=== PATIENT | male | born 1980 | race Caucasian/White ===

== ENCOUNTER 2023-06-17 10:23 | Emergency (ER) | payer OTHER, SELFPAY ==
[2023-06-17 10:28] VITALS: BP 168/94; PULSE 80; RESP 18; TEMP 36.8; O2SAT 99; BMI 37.5
--- NOTE | 2023-06-17 10:40 | CRLHL7_ITS ---
For Patients: As a result of the Century Cures Act, medical imaging exams and procedure reports are released immediately into your electronic medical record. You may view this report before your referring provider. If you have questions, please contact your health care provider. CLINICAL HISTORY: Left scrotal lump TECHNIQUE: Benedict scale imaging was performed of the scrotum. In addition color Doppler and spectral Doppler analysis was performed of the testes. FINDINGS: The testes demonstrate normal arterial and venous blood flow on color Doppler and spectral Doppler analysis. The testes have uniform echogenicity with no evidence of a suspicious mass or area of inflammation. The right testis measures 5 x 2.5 x 3.3 cm in size and the left testis measures 4 x 1 x 2 x 2.9 cm. In the area of lump is a left epididymal head complex cyst measuring 3 x 2.5 x 2.1 centimeters with a more the solid nodular component measuring 0.7 by 0.7 x 0.7 centimeters without definite vascularity seen. No evidence of a hydrocele or varicocele. IMPRESSION: 1. In the area of lump is a left epididymal complex cyst measuring 3 x 2.5 x 2.1 centimeters with the more solid/nodular component measuring 0.7 centimeters without definite vascularity seen. Recommend follow-up imaging in 3-6 months. Dictated by Sia Azul MD @ 06/17/2023 12:08:46 PM (Electronically Signed)
--- NOTE | 2023-06-17 10:51 | ED.MALEGU ---
HPI - Male Genitourinary General Date Seen: 06/17/23 Chief complaint: Urogenital Problems, Male Stated complaint: scrotum pain Time Seen by Provider: 06/17/23 10:30 Source: patient Mode of arrival: ambulatory Limitations: no limitations History of Present Illness HPI Narrative: Patient is a very nice 43-year-old gentleman who presents here with a left testicular mass, that is been present for last week, he noted, and it seems to be enlarging over the past 2 days, there is no real pain a little bit of pressure with this, he has no problems with urination, denies any dysuria frequency associated with this no past history of STDs. He does have a history of some mild BPH in the past, was on medications but has discontinued these medications for this, also elevated blood pressure. Denies no blood in his urine, no abdominal pain, no history of trauma or injury. In his review of the problem, glucose as this may be a spermatocele or epididymal cyst. He has not had a vasectomy. Related Data Home Medications Medication Instructions Recorded Confirmed No Known Home Medications 04/26/23 04/26/23 Allergies Allergy/AdvReac Type Severity Reaction Status Date / Time No Known Drug Allergies Allergy Verified 04/26/23 16:30 Review of Systems Status of ROS: Reports: 10 or more systems reviewed and unremarkable except as noted in History and below PFSH PFS Social History Smoking Status: Never smoker Do you use any of these nicotine containing products: None Second hand tobacco smoke exposure: No How often do you have a drink containing alcohol: never AUDIT-C Alcohol total score: 0 Non-prescribed substance use: denies use service: No Exam Narrative: Exam Narrative: On examination here he is in no apparent distress he has an elevated BMI, right testicle palpates normally left testicle shows a mass that is separate from the testicle, appears to be just a little bit above almost in the epidymal area, I am not getting a firm feel that this is part of his epididymis, it appears to be hard, but I believe there is actually of fluid within it. Testicle itself palpates normal, no hernias are noted, no tenderness is noted along his groin, no redness over the scrotum, and no penile discharge I did note to him that his blood pressure was elevated at 168 systolic. Const: Vital Signs, click to edit/add: Vital Signs - 24 hr 06/17/23 10:28 Temperature 98.2 F Pulse Rate [Right Pulse Oximeter] 80 Respiratory Rate 18 Blood Pressure [Ri ght Upper Arm] 168/94 H Pulse Oximetry 99 Oxygen Delivery Me thod Room Air Documenting provider has reviewed patient's vital signs: yes Course Vital Signs Vital signs: Initial Vital Signs Temperature 98.2 F 06/17/23 10:28 Temperature Source Temporal Artery Scan 06/17/23 10:28 Pulse Rate 80 06/17/23 10:28 Respiratory Rate 18 06/17/23 10:28 Blood Pressure 168/94 H 06/17/23 10:28 Blood Pressure Mean 118 H 06/17/23 10:28 Blood Pressure Position Sitting 06/17/23 10:28 Pulse Oximetry 99 06/17/23 10:28 Oxygen Delivery Method Room Air 06/17/23 10:28 Vital Signs Temperature 98.2 F 06/17/23 10:28 Pulse Rate 80 06/17/23 10:28 Respiratory Rate 18 06/17/23 10:28 Blood Pressure 168/94 H 06/17/23 10:28 Pulse Oximetry 99 06/17/23 10:28 Oxygen Delivery Method Room Air 06/17/23 10:28 Temperature 98.2 F 06/17/23 10:28 Pulse Rate 80 06/17/23 10:28 Respiratory Rate 18 06/17/23 10:28 Blood Pressure 168/94 H 06/17/23 10:28 Pulse Oximetry 99 06/17/23 10:28 Oxygen Delivery Method Room Air 06/17/23 10:28 MDM - Male Genitourinary MDM Narrative Medical decision making narrative: Ultrasound will be done to rule out torsion, solid mass. Also get a UA. Medical Records Attestation: I reviewed the patient's medical records. Lab Data Attestation: I reviewed the patient's lab results. Labs: Lab Results 06/17/23 Range/Units 10:41 Urine Color Yellow (Yellow) Urine Appearance Clear (Clear) Urine pH 6.0 (5.0-8.5) Ur Specific Dennis >= 1.030 (1.000-1.030) Urine Protein 1+ A (Negative) Urine Glucose (UA) Negative (Negative) Urine Ketones Negative (Negative) Urine Blood Trace-intact A (Negative) Urine Nitrite Negative (Negative) Urine Bilirubin Negative (Negative) Urine Urobilinogen 0.2 (0.2-1.0) Ur Leukocyte Esterase Negative (Negative) Urine RBC 0-2 (0-2) Urine WBC 0-2 (0-5) Ur Squamous Epith Cells Few (None-Few) Urine Bacteria None (None) Imaging Data Testicular ultrasound: Radiologist's impression: Patient: ROBYN ROGERS Facility: [facility] Site . Site : 1980 Study: US Testicle -06/17/2023 11:08:53 AM Ordering Physician: Carlos Enrique Awad Final Report: CLINICAL HISTORY: Left scrotal lump TECHNIQUE: Benedict scale imaging was performed of the scrotum. In addition color Doppler and spectral Doppler analysis was performed of the testes. FINDINGS: The testes demonstrate normal arterial and venous blood flow on color Doppler and spectral Doppler analysis. The testes have uniform echogenicity with no evidence of a suspicious mass or area of inflammation. The right testis measures 5 x 2.5 x 3.3 cm in size and the left testis measures 4 x 1 x 2 x 2.9 cm. In the area of lump is a left epididymal head complex cyst measuring 3 x 2.5 x 2.1 centimeters with a more the solid nodular component measuring 0.7 by 0.7 x 0.7 centimeters without definite vascularity seen. No evidence of a hydrocele or varicocele. IMPRESSION: 1. In the area of lump is a left epididymal complex cyst measuring 3 x 2.5 x 2.1 centimeters with the more solid/nodular component measuring 0.7 centimeters without definite vascularity seen. Recommend follow-up imaging in 3-6 months. Dictated by Sia Azul MD @ 06/17/2023 12:08:46 PM (Electronic Signature) Discharge Plan Discharge Clinical Impression: Epididymal cyst Patient Disposition: Home, Self-Care Condition: Stable Instructions: Testicle Pain (ED), Scrotal Pain (ED) Additional Instructions: Ibuprofen 600 mg p.o. t.i.d., recommend follow-up with Urology, assist looks to be benign but there is a central core that is solid, this will need follow-up. I would do it sooner rather than later, within the next couple weeks, no evidence of infection, or other issue. Light duty is suggest. Prescriptions: No Action No Known Home Medications Follow Up/Referrals: Provider,Not a Local [Referring] - Stand Alone Forms: MyHealth Info Instructions
[2023-06-17 11:10] LABS: Appearance Urine Clear (Clear); Bilirubin Urine Negative (Negative); Blood Urine Trace-intact (Negative); Color Urine Yellow (Yellow); Glucose Urine Negative (Negative); Ketones Urine Negative (Negative); Leukocyte Esterase Urine Negative (Negative); Nitrite Urine Negative (Negative); Protein Urine 1+ (Negative); Specific Gravity Urine >= 1.030 (1.000-1.030); Urobilinogen Urine 0.2 (0.2-1.0)
[2023-06-17 11:19] LABS: RBC Urine 0-2 (0-2); Squamous Epithelial Cell Urine Few (None-Few); WBC Urine 0-2 (0-5)
== END 2023-06-17 12:39 | disposition home or self-care (01) ==
PROVIDERS: Emergency Provider Family Medicine; PCP Orthopaedic Surgery
DX: N50.3 Cyst of epididymis (principal)
CPT/HCPCS: 76870; 81001; 93976; 99283; 99284